=== PATIENT | female | born 1940 | race Two or more races ===

== ENCOUNTER 2023-07-27 05:58 | Day surgery (SDC) | payer OTHER ==
[~2023-07-27 05:58] MED LIST: LOTREL 5-20 MG1 CAP PO; MACROBID 100 M100 MG PO; METFORMIN HCL500 M3 PO; TRAMADOL HCL-AP1 TAB PO; ZOCOR40 MG PO
[2023-07-27] MEDS ORDERED: MACROBID 100 M100 MG PO (10:43)
[2023-07-27] MEDS ORDERED: TRAM1TAB98 PO (10:43)
== END 2023-07-27 14:00 | disposition home or self-care (01) ==
LOC: CIR.AMB 05:58
PROVIDERS: ATTEND Obstetrics & Gynecology Gynecology
DX: N81.11 Cystocele, midline (principal); N81.5 Vaginal enterocele; Z20.822 Contact with and (suspected) exposure to COVID-19; I10 Essential (primary) hypertension

== ENCOUNTER 2024-06-20 05:30 | Day surgery (SDC) | payer OTHER ==
[~2024-06-20 05:30] MED LIST changes: +CYMBALTA60 MG PO; +TRAM1TAB98 PO
[2024-06-20] MEDS ORDERED: LIDOCAINE HCL 1%/EPINEPHRINE 50ML VIAL IJ ONE (08:45)
[2024-06-20] MEDS ORDERED: CHLORHEXIDINE GLUCONATE 120 ML BOTTLE TOP ONE (08:45)
[2024-06-20] MEDS ORDERED: VANCOMYCIN HCL 1,000 MG VIAL IR ONE (08:45)
[2024-06-20] MEDS ORDERED: CEFAZOLIN SODIUM 1,000 MG VIAL IV ONE (08:45)
[2024-06-20] MEDS ORDERED: MACROBID 100 M100 MG PO (09:58)
[2024-06-20] MEDS ORDERED: TRAM1TAB98 PO (09:58)
== END 2024-06-20 12:00 | disposition home or self-care (01) ==
LOC: CIR.AMB 05:30
PROVIDERS: ATTEND Obstetrics & Gynecology Gynecology
DX: N81.6 Rectocele (principal); N81.5 Vaginal enterocele; I10 Essential (primary) hypertension; E78.5 Hyperlipidemia, unspecified; E11.9 Type 2 diabetes mellitus without complications; M19.90 Unspecified osteoarthritis, unspecified site